=== PATIENT | female | born 2000 | race American Indian/Alaskan Native ===

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

== ENCOUNTER 2019-04-17 16:11 | Observation (INO) | payer MEDICAID ==
[2019-04-17] MEDS ORDERED: LACTATED RINGERS 500 ML IV ONE (16:34)
--- NOTE | 2019-04-17 17:18 | History and Physical Report ---
History of Present Illness Date of examination: 04/17/19 Date of admission: 04/17/2019 Chief complaint: Presents from office with advanced cervical dilation at 34 3/7 Weeks History of present illness: Early entry to care at 6 3/7 weeks; course complicated by a breast mass (negative breast US); Vitamin D Deficiency, and advanced cervical dilation at 34 3/7 weeks. 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 History: chlamydia, gonorrhea Family/Genetic History: hypertension Social history: no significant social history, single - Obstetrical History Expected Date of Delivery: 05/26/19 Actual Gestation: 34 Week(s) 3 Day(s) : 2 Para: 1 Hx # Term Pregnancies: 1 Number of Living Children: 1 #1 Infant Gender: Female year: 2[age][birth year] Birthweight: 3.629 kg Method of Delivery: Vaginal Complications: none Medications and Allergies Allergies Allergy/AdvReac Type Severity Reaction Status Date / Time No Known Allergies Allergy Verified 11/12/17 15:38 Home Medications Medication Instructions Recorded Confirmed Last Taken Type ALBUTEROL Inhaler (OR & NICU) 2 puff IH 2XWHS PRN #90 inhalation 10/07/14 11/22/17 2 Days Ago Rx [ProAir HFA Inhaler] ~11/19/17 ALBUTEROL NEB's [Proventil 0.083% 2.5 mg IH TID PRN #30 neb 06/14/18 Unknown Rx NEBS] Albuterol Sulfate [Ventolin HFA] 2 puff IH Q4H PRN #1 hfa.aer.ad 06/14/18 Unknown Rx Nitrofurantoin Monohyd/M-Cryst 100 mg PO BID #10 capsule 09/20/18 Unknown Rx [Macrobid 100 mg Capsule] Pnv,Calcium 72/Iron/Folic Acid 1 tab PO DAILY #40 tablet 09/20/18 Unknown Rx [Pnv Plus Multivit Tab] Active Meds: Active Medications Betamethasone Acet/Betameth SodPhos (Celestone Soluspan) 12 mg IM Q24HR YESENIA Stop: 04/18/19 10:01 Lactated Ringer's (Lactated Ringers) 1,000 mls @ 125 mls/hr IV DIRECT YESENIA Ampicillin Sodium (Ampicillin/Ns 2 Gm/100 Ml) 2 gm in 100 mls @ 400 mls/hr IV Q6H YESENIA; Protocol Review of Systems All systems: negative - Vital Signs Vital signs: Vital Signs Pulse BP Pulse Ox 93 H 122/75 98 04/17/19 17:02 04/17/19 17:02 04/17/19 17:02 Temp Pulse Resp BP Pulse Ox 85 122/75 98 04/17/19 17:02 04/17/19 17:02 04/17/19 17:02 - Physical Exam Breasts: Positive: normal Cardiovascular: Regular rate Lungs: Positive: Clear to auscultation, Normal air movement Abdomen: Positive: normal appearance, soft, normal bowel sounds Genitourinary (Female): Positive: normal external genitalia, normal perenium Vagina: Positive: normal moisture Uterus: Positive: enlarged Anus/Rectum: Positive: normal perianal skin Extremities: Positive: normal - Obstetrical FHR: category 1 Uterine Contraction Monitor Mode: External Cervical Dilatation: 3 (Vtx; Intact) Cervical Effacement Percentage: 60 station: -3 Uterine Contraction Pattern: Irregular Uterine Tone Measurement Phase: Resting Uterine Contraction Intensity: Moderate Results All other labs normal. Assessment and Plan A: IUP @ 34 3/7 weeks Category I Tracing Advanced Cervical Dilation P: Admit to L&D Per Routine Orders Betamethsome Series IV ABX IV Hydration BPP Consult Dr. Smith
[2019-04-17] MEDS ORDERED: MAGNESIUM SULFATE 4 GM/100 ML BAG IV ONE ×2 (17:57→18:28)
[2019-04-17] MEDS ORDERED: MAGNESIUM SULFATE 40GM/1000ML 40 GM/1,000 ML BAG IV ONE (17:57)
[2019-04-17] MEDS: LACTATED RINGERS 1,000 ML IV SCH (18:30)
--- NOTE | 2019-04-17 18:31 | Ultrasound Report ---
Biophysical profile INDICATION: labor COMPARISON: None FINDINGS: breathing movement: 2/2 movement: 2/2 posture and tone: 2/2 Qualitative amniotic fluid volume: 2/2 IMPRESSION: Total score for biophysical profile is 8/8 heart rate is 156 bpm Signer Name: Woodrow Love MD Signed: 04/17/2019 6:27 PM Workstation Name: [id number]
--- NOTE | 2019-04-17 18:33 | Ultrasound Report ---
ULTRASOUND OBSTETRIC, limited follow-up Indication: FWB Findings: There is a single intrauterine . BPD = 8.5 cm = 34 weeks, 2 day(s). Head circumference = 30.9 cm = 34 weeks, 3 day(s). Abdominal circumference = 29.6 cm = 33 weeks, 3 day(s). Femur length = 6.9 cm = 35 weeks, 4 day(s). Overall estimated sonographic age = 34 weeks, 3 day(s). heart rate is 159 beats per minute. Estimated weight is 2396 grams position is cephalic. Amniotic fluid volume appears normal. MINGO equals 10.9 cm Impression: 1. Single living intrauterine with estimated sonographic age of 34 weeks, 3 day(s). 2. No sonographic abnormality identified. Signer Name: Woodrow Love MD Signed: 04/17/2019 6:29 PM Workstation Name: [id number]
[2019-04-17] MEDS: AMPICILLIN/NS 2 GM/100 ML 2 GM/100 ML BAG IV SCH (18:34)
--- NOTE | 2019-04-17 18:36 | Progress Note ---
Assessment and Plan - Patient Problems (1) 34 weeks gestation of Current Visit: Yes Status: Acute (2) labor Current Visit: Yes Status: Acute Plan to address problem: Labs, urinalysis. Start magnesium sulfate for tocolysis and neuroprotection. Monitor Mg levels and urine output. monitoring. IV ampicillin for GBS prophylaxis. Celestone for FLM. IV hydration. MFM consult. Subjective - Subjective Date of service: 04/17/19 Principal diagnosis: SIUP at 34 weeks and 3 days wityh labor. Interval history: Patient is a 19 year old , LMP 08/19/18, EDC 05/26/19 at 34 weeks an 3 days gestation who was sent from the office for contractions. She denies any fluid leakage or bleeding. She reports good movement. tracing is CAT1. Exam by scratch finisher in the office: cervix 3 cm. Objective - Vital Signs Vital Signs: Vital Signs - 12hr 04/17/19 17:02 Pulse Rate 85 Blood Pressure 122/75 O2 Sat by Pulse 98 Oximetry - Exam Cardiovascular: Normal S1, Normal S2 Lungs: Clear to auscultation Vulva: both: normal FHR: category 1 Uterine Contraction Monitor Mode: External Uterine Contraction Pattern: Absent Deep Tendon Reflex Grade: Normal +2 - Results US- obstetric: report reviewed
[2019-04-17] MEDS: BETAMET ACET/BETAMET NA PH 6 MG/ML INJ 5 ML MDV IM SCH (18:42)
[2019-04-17] MEDS: MAGNESIUM SULFATE 40GM/1000ML 40 GM/1,000 ML BAG IV SCH (18:49)
[2019-04-17 19:41] LABS: Basophils # (Auto) 0.1 K/mm3 (0.0-0.1); Basophils % (Auto) 1.1 % (0.0-1.8); Eosinophils # (Auto) 0.1 K/mm3 (0.0-0.4); Eosinophils % (Auto) 1.1 % (0.0-4.3); Hematocrit 36.2 % (30.3-42.9); Hemoglobin 11.8 gm/dl (10.1-14.3); Lymphocytes # (Auto) 2.9 K/mm3 (1.2-5.4); Lymphocytes % (Auto) 25.4 % (13.4-35.0); Mean Corpuscular HGB Conc 33 % (30-34); Mean Corpuscular Volume 85 fl (79-97); Monocytes % (Auto) 8.6 % (0.0-7.3); Platelet Count 240 K/mm3 (140-440); Red Blood Count 4.24 M/mm3 (3.65-5.03); Red Cell Distribution Width 14.3 % (13.2-15.2)
[2019-04-17] MEDS ORDERED: ZOLPIDEM 5 MG TAB PO PRN (21:36)
[2019-04-18] MEDS: AMPICILLIN/NS 2 GM/100 ML 2 GM/100 ML BAG IV SCH ×4 (01:26→19:39)
[2019-04-18] MEDS ORDERED: BUTORPHANOL 2 MG/1 ML INJ IV PRN (03:54)
[2019-04-18] MEDS ORDERED: DOCUSATE SODIUM 100 MG CAP PO PRN (09:58)
[2019-04-18] MEDS ORDERED: ONDANSETRON 4 MG/2 ML INJ IV PRN (09:58)
[2019-04-18] MEDS ORDERED: ZOLPIDEM 5 MG TAB PO PRN (09:58)
[2019-04-18] MEDS ORDERED: ACETAMINOPHEN 325 MG TAB PO PRN (09:58)
[2019-04-18] MEDS ORDERED: SIMETHICONE 80 MG CHEW TAB PO PRN (09:58)
--- NOTE | 2019-04-18 10:04 | Progress Note ---
Assessment and Plan - Patient Problems (1) 34 weeks gestation of Current Visit: Yes Status: Acute (2) labor Current Visit: Yes Status: Acute Plan to address problem: Continue magnesium sulfate for tocolysis and neuroprotection. Monitor Mg levels and urine output. monitoring. IV ampicillin for GBS prophylaxis. Celestone for FLM to be completed tonight. IV hydration. MFM consult. Subjective - Subjective Date of service: 04/18/19 Principal diagnosis: SIUP at 34 weeks and 4 days wityh labor. Interval history: Patient is a 19 year old , LMP 08/19/18, EDC 05/26/19 at 34 weeks an 4 days gestation who was admitted for labor. She denies any fluid leakage or bleeding. She reports good movement. On initial exam, she was 3 cm dilated. She has felt pressure during the night. This AM, she progressed to 6 cm/50%. She is not having any contractions now. tracing is CAT1. Objective - Vital Signs Vital Signs: Vital Signs - 12hr 04/17/19 04/17/19 04/18/19 22:05 23:17 08:09 Temperature Pulse Rate 89 88 92 H Respiratory Rate Blood Pressure 113/56 133/74 O2 Sat by Pulse 97 98 Oximetry 04/18/19 04/18/19 04/18/19 08:14 08:19 08:24 Temperature Pulse Rate 97 H 93 H 89 Respiratory Rate Blood Pressure O2 Sat by Pulse 98 98 99 Oximetry 04/18/19 04/18/19 04/18/19 08:29 08:33 08:34 Temperature 98.2 F Pulse Rate 91 H 95 H Respiratory 16 Rate Blood Pressure O2 Sat by Pulse 98 99 Oximetry 04/18/19 04/18/19 04/18/19 09:30 09:50 09:55 Temperature Pulse Rate 93 H 84 80 Respiratory Rate Blood Pressure O2 Sat by Pulse 97 98 98 Oximetry - Exam Cardiovascular: Normal S1, Normal S2 Lungs: Clear to auscultation Vulva: both: normal FHR: category 1 Uterine Contraction Monitor Mode: External Uterine Contraction Pattern: Absent Deep Tendon Reflex Grade: Normal +2 - Labs Labs: Abnormal Labs 04/17/19 04/18/19 19:12 00:39 WBC 11.4 H [place] % (Auto) 8.6 H [place] # 1.0 H Magnesium 4.30 H Laboratory Results - last 24 hr 10/23/19 10/23/19 10/24/19 19:12 19:15 00:39 WBC 11.4 H RBC 4.24 Hgb 11.8 Hct 36.2 MCV 85 MCH 28 MCHC 33 RDW 14.3 Plt Count 240 Lymph % (Auto) 25.4 [place] % (Auto) 8.6 H Eos % (Auto) 1.1 Baso % (Auto) 1.1 Lymph # 2.9 [place] # 1.0 H Eos # 0.1 Baso # 0.1 Seg Neutrophils % 63.8 Seg Neutrophils # 7.3 Magnesium 4.30 H Blood Type B POSITIVE Antibody Screen Negative - Results US- obstetric: report reviewed
[2019-04-18] MEDS ORDERED: NIFEdipine*For Tocolysis only* 10 MG CAPSULE PO ONE (13:30)
[2019-04-18] MEDS: PRENATAL VIT27-FE FUMARATE-FOLIC ACID VIT TAB PO SCH (13:38)
[2019-04-18] MEDS: MAGNESIUM SULFATE 40GM/1000ML 40 GM/1,000 ML BAG IV SCH (14:48)
[2019-04-18] MEDS ORDERED: NalbUPHINE 10 MG/1 ML INJ IV ONE (16:27)
[2019-04-18] MEDS: BETAMET ACET/BETAMET NA PH 6 MG/ML INJ 5 ML MDV IM SCH (18:42)
[2019-04-19] MEDS: AMPICILLIN/NS 2 GM/100 ML 2 GM/100 ML BAG IV SCH ×3 (04:44→16:27)
[2019-04-19] MEDS: MAGNESIUM SULFATE 40GM/1000ML 40 GM/1,000 ML BAG IV SCH (06:44)
[2019-04-19] MEDS: LACTATED RINGERS 1,000 ML IV SCH ×2 (06:44→20:03)
[2019-04-19] MEDS: PRENATAL VIT27-FE FUMARATE-FOLIC ACID VIT TAB PO SCH (09:25)
--- NOTE | 2019-04-19 14:11 | Progress Note ---
Assessment and Plan - Patient Problems (1) 34 weeks gestation of Current Visit: Yes Status: Acute (2) labor Current Visit: Yes Status: Acute Plan to address problem: To remain admitted. Expectant mgt. NICU aware. Subjective - Subjective Date of service: 04/19/19 Principal diagnosis: SIUP at 34 weeks and 4 days wityh labor. Interval history: 34+5 wks with cervical dilatation of 6cm. Membranes remain intact. MgSO4 was discontinued this am. No consistent pattern/regularity of contractions reported. fetus is active. Patient reports: movement normal, no new complaints, no loss of fluid, no vaginal bleeding, no contractions Objective - Vital Signs Vital Signs: Vital Signs - 12hr 04/19/19 04/19/19 04/19/19 02:12 02:16 02:22 Temperature Pulse Rate 76 77 76 Respiratory Rate Blood Pressure Blood Pressure [Left] O2 Sat by Pulse 98 98 98 Oximetry 04/19/19 04/19/19 04/19/19 02:27 02:32 02:35 Temperature Pulse Rate 82 78 76 Respiratory Rate Blood Pressure 118/66 Blood Pressure [Left] O2 Sat by Pulse 98 98 Oximetry 04/19/19 04/19/19 04/19/19 02:37 02:42 02:47 Temperature Pulse Rate 77 76 78 Respiratory Rate Blood Pressure Blood Pressure [Left] O2 Sat by Pulse 98 98 98 Oximetry 04/19/19 04/19/19 04/19/19 02:51 02:57 03:02 Temperature Pulse Rate 88 76 74 Respiratory Rate Blood Pressure Blood Pressure [Left] O2 Sat by Pulse 98 99 99 Oximetry 04/19/19 04/19/19 04/19/19 03:05 03:07 03:12 Temperature Pulse Rate 79 75 74 Respiratory Rate Blood Pressure 118/64 Blood Pressure [Left] O2 Sat by Pulse 99 99 Oximetry 04/19/19 04/19/19 04/19/19 03:17 03:22 03:27 Temperature Pulse Rate 74 73 76 Respiratory Rate Blood Pressure Blood Pressure [Left] O2 Sat by Pulse 99 98 99 Oximetry 04/19/19 04/19/19 04/19/19 03:32 03:34 03:37 Temperature Pulse Rate 91 H 68 71 Respiratory Rate Blood Pressure 124/57 Blood Pressure [Left] O2 Sat by Pulse 99 98 Oximetry 04/19/19 04/19/19 04/19/19 03:42 03:47 03:52 Temperature Pulse Rate 72 72 74 Respiratory Rate Blood Pressure Blood Pressure [Left] O2 Sat by Pulse 98 98 98 Oximetry 04/19/19 04/19/19 04/19/19 03:57 04:02 04:04 Temperature Pulse Rate 75 73 74 Respiratory Rate Blood Pressure 111/56 Blood Pressure [Left] O2 Sat by Pulse 98 98 Oximetry 04/19/19 04/19/19 04/19/19 04:07 04:12 04:17 Temperature Pulse Rate 75 76 86 Respiratory Rate Blood Pressure Blood Pressure [Left] O2 Sat by Pulse 98 99 99 Oximetry 04/19/19 04/19/19 04/19/19 04:22 04:23 04:27 Temperature Pulse Rate 61 76 70 Respiratory Rate Blood Pressure Blood Pressure [Left] O2 Sat by Pulse 94 99 100 Oximetry 04/19/19 04/19/19 04/19/19 04:33 04:35 04:38 Temperature Pulse Rate 77 67 71 Respiratory Rate Blood Pressure 105/57 Blood Pressure [Left] O2 Sat by Pulse 99 99 Oximetry 04/19/19 04/19/19 04/19/19 04:43 04:48 04:53 Temperature Pulse Rate 91 H 81 87 Respiratory Rate Blood Pressure Blood Pressure [Left] O2 Sat by Pulse 99 99 99 Oximetry 04/19/19 04/19/19 04/19/19 04:58 05:03 05:06 Temperature Pulse Rate 83 80 78 Respiratory Rate Blood Pressure 110/56 Blood Pressure [Left] O2 Sat by Pulse 98 98 Oximetry 04/19/19 04/19/19 04/19/19 05:08 05:13 05:18 Temperature Pulse Rate 80 81 84 Respiratory Rate Blood Pressure Blood Pressure [Left] O2 Sat by Pulse 98 98 98 Oximetry 04/19/19 04/19/19 04/19/19 05:23 05:28 05:33 Temperature Pulse Rate 84 79 78 Respiratory Rate Blood Pressure Blood Pressure [Left] O2 Sat by Pulse 98 99 98 Oximetry 04/19/19 04/19/19 04/19/19 05:34 05:38 05:43 Temperature Pulse Rate 78 82 82 Respiratory Rate Blood Pressure 103/50 Blood Pressure [Left] O2 Sat by Pulse 98 98 Oximetry 04/19/19 04/19/19 04/19/19 05:48 05:53 05:58 Temperature Pulse Rate 94 H 79 88 Respiratory Rate Blood Pressure Blood Pressure [Left] O2 Sat by Pulse 99 99 98 Oximetry 04/19/19 04/19/19 04/19/19 06:03 06:04 06:08 Temperature Pulse Rate 85 88 85 Respiratory Rate Blood Pressure 142/65 Blood Pressure [Left] O2 Sat by Pulse 98 99 Oximetry 04/19/19 04/19/19 04/19/19 06:13 06:18 06:23 Temperature Pulse Rate 91 H 87 79 Respiratory Rate Blood Pressure Blood Pressure [Left] O2 Sat by Pulse 98 99 99 Oximetry 04/19/19 04/19/19 04/19/19 06:28 06:33 06:34 Temperature Pulse Rate 82 82 85 Respiratory Rate Blood Pressure 143/67 Blood Pressure [Left] O2 Sat by Pulse 99 99 Oximetry 04/19/19 04/19/19 04/19/19 06:38 06:43 06:48 Temperature Pulse Rate 83 77 97 H Respiratory Rate Blood Pressure Blood Pressure [Left] O2 Sat by Pulse 99 99 99 Oximetry 04/19/19 04/19/19 04/19/19 06:53 06:58 07:03 Temperature Pulse Rate 95 H 83 81 Respiratory Rate Blood Pressure Blood Pressure [Left] O2 Sat by Pulse 99 99 99 Oximetry 04/19/19 04/19/19 04/19/19 07:04 07:08 07:13 Temperature Pulse Rate 89 82 92 H Respiratory Rate Blood Pressure 106/58 Blood Pressure [Left] O2 Sat by Pulse 99 99 Oximetry 04/19/19 04/19/19 04/19/19 07:18 07:23 07:28 Temperature Pulse Rate 88 81 71 Respiratory Rate Blood Pressure Blood Pressure [Left] O2 Sat by Pulse 99 99 100 Oximetry 04/19/19 04/19/19 04/19/19 07:33 07:38 07:43 Temperature Pulse Rate 71 89 78 Respiratory Rate Blood Pressure Blood Pressure [Left] O2 Sat by Pulse 100 98 100 Oximetry 04/19/19 04/19/19 04/19/19 07:48 07:53 07:55 Temperature 98.4 F Pulse Rate 77 91 H 83 Respiratory 18 Rate Blood Pressure Blood Pressure 117/64 [Left] O2 Sat by Pulse 100 99 Oximetry 04/19/19 04/19/19 04/19/19 07:58 08:01 08:03 Temperature Pulse Rate 86 83 83 Respiratory Rate Blood Pressure 117/64 Blood Pressure [Left] O2 Sat by Pulse 100 84 Oximetry 04/19/19 04/19/19 04/19/19 08:04 08:09 08:14 Temperature Pulse Rate 91 H 89 86 Respiratory Rate Blood Pressure Blood Pressure [Left] O2 Sat by Pulse 100 99 99 Oximetry 04/19/19 04/19/19 04/19/19 08:19 08:24 08:29 Temperature Pulse Rate 85 86 83 Respiratory Rate Blood Pressure Blood Pressure [Left] O2 Sat by Pulse 99 100 100 Oximetry 04/19/19 04/19/19 04/19/19 08:34 08:39 08:44 Temperature Pulse Rate 84 93 H 85 Respiratory Rate Blood Pressure Blood Pressure [Left] O2 Sat by Pulse 100 100 99 Oximetry 04/19/19 04/19/19 04/19/19 08:49 08:54 08:59 Temperature Pulse Rate 88 93 H 87 Respiratory Rate Blood Pressure Blood Pressure [Left] O2 Sat by Pulse 100 99 100 Oximetry 04/19/19 04/19/19 04/19/19 09:04 09:09 09:14 Temperature Pulse Rate 84 90 95 H Respiratory Rate Blood Pressure Blood Pressure [Left] O2 Sat by Pulse 100 100 100 Oximetry 04/19/19 04/19/19 04/19/19 09:19 09:24 09:29 Temperature Pulse Rate 90 112 H 100 H Respiratory Rate Blood Pressure Blood Pressure [Left] O2 Sat by Pulse 100 99 99 Oximetry 04/19/19 04/19/19 04/19/19 09:34 09:39 09:44 Temperature Pulse Rate 88 89 89 Respiratory Rate Blood Pressure Blood Pressure [Left] O2 Sat by Pulse 99 99 99 Oximetry 04/19/19 04/19/19 04/19/19 09:49 09:54 09:59 Temperature Pulse Rate 89 92 H 96 H Respiratory Rate Blood Pressure Blood Pressure [Left] O2 Sat by Pulse 99 100 99 Oximetry 04/19/19 04/19/19 04/19/19 10:04 10:09 10:14 Temperature Pulse Rate 82 95 H 84 Respiratory Rate Blood Pressure Blood Pressure [Left] O2 Sat by Pulse 100 99 99 Oximetry 04/19/19 04/19/19 04/19/19 10:19 10:24 10:29 Temperature Pulse Rate 86 79 87 Respiratory Rate Blood Pressure Blood Pressure [Left] O2 Sat by Pulse 99 99 99 Oximetry 04/19/19 04/19/19 04/19/19 10:34 10:39 10:44 Temperature Pulse Rate 84 84 86 Respiratory Rate Blood Pressure Blood Pressure [Left] O2 Sat by Pulse 99 99 99 Oximetry 04/19/19 04/19/19 04/19/19 10:49 10:54 10:59 Temperature Pulse Rate 88 89 85 Respiratory Rate Blood Pressure Blood Pressure [Left] O2 Sat by Pulse 99 99 99 Oximetry 04/19/19 04/19/19 04/19/19 11:04 11:09 11:14 Temperature Pulse Rate 86 79 78 Respiratory Rate Blood Pressure Blood Pressure [Left] O2 Sat by Pulse 100 99 99 Oximetry 04/19/19 04/19/19 04/19/19 11:17 11:22 11:27 Temperature Pulse Rate 177 H Respiratory Rate Blood Pressure Blood Pressure [Left] O2 Sat by Pulse 82 L 85 77 L Oximetry 04/19/19 04/19/19 04/19/19 11:28 11:33 11:35 Temperature Pulse Rate 88 103 H 206 H Respiratory Rate Blood Pressure Blood Pressure [Left] O2 Sat by Pulse 77 L 92 82 L Oximetry 04/19/19 04/19/19 04/19/19 11:46 12:30 12:38 Temperature 98.1 F Pulse Rate 66 83 83 Respiratory 18 Rate Blood Pressure 116/56 Blood Pressure 116/56 [Left] O2 Sat by Pulse 85 Oximetry - Exam Lungs: Normal air movement Abdomen: Present: normal appearance, soft, distention. Absent: tenderness FHR: auscultation normal - Labs Labs: Abnormal Labs 04/17/19 04/18/19 04/19/19 19:12 00:39 07:06 WBC 11.4 H [place] % (Auto) 8.6 H [place] # 1.0 H Magnesium 4.30 H 6.10 H Laboratory Results - last 24 hr 04/19/19 07:06 Magnesium 6.10 H
[2019-04-20] MEDS: LACTATED RINGERS 1,000 ML IV SCH (04:18)
[2019-04-20] MEDS: AMPICILLIN/NS 2 GM/100 ML 2 GM/100 ML BAG IV SCH (05:49)
[2019-04-20 10:03] VITALS: BP 110/55
--- NOTE | 2019-04-20 14:53 | Progress Note ---
Assessment and Plan - Patient Problems (1) 34 weeks gestation of Current Visit: Yes Status: Acute (2) labor Current Visit: Yes Status: Acute Plan to address problem: Magnesium sulfate x 24 hrs given for tocolysis and neuroprotection. IV ampicillin for GBS prophylaxis. Celestone for FLM to be completed. IV hydration. monitoring. MFM consult. Remains inpatient. Expectant management. Subjective - Subjective Date of service: 04/20/19 Principal diagnosis: SIUP at 34 weeks and 6 days with labor. Interval history: Patient is a 19 year old , LMP 08/19/18, EDC 05/26/19 at 34 weeks an 6 days gestation who was admitted for labor 3 days ago. She denies any fluid leakage or bleeding. She reports good movement. On initial exam, she was 3 cm dilated. She later she progressed to 6 cm/50%. She has not made any cervical changes since. She was treated with magnesium sulfate for neuroprotection, ampicillin for GBS prophylaxis, and celestone for FLM. Sonogram showed normal MINGO, VTX presentation. She is not having any contractions now. tracing is CAT1. Patient reports: movement normal, no new complaints, no loss of fluid, no vaginal bleeding, no contractions Objective - Vital Signs Vital Signs: Vital Signs - 12hr 04/20/19 04/20/19 04/20/19 06:59 07:18 10:00 Temperature 98.7 F Pulse Rate 81 81 77 Respiratory 18 Rate Blood Pressure 94/55 110/54 Blood Pressure 94/55 [Left] 04/20/19 10:02 Temperature Pulse Rate 77 Respiratory 16 Rate Blood Pressure Blood Pressure 110/55 [Left] - Exam Cardiovascular: Normal S1, Normal S2 Lungs: Clear to auscultation Vulva: both: normal FHR: category 1 Uterine Contraction Monitor Mode: External Cervical Dilatation: 6 Cervical Effacement Percentage: 50 station: -3 Uterine Contraction Pattern: Absent Deep Tendon Reflex Grade: Normal +2 - Labs Labs: Abnormal Labs 04/17/19 04/18/19 04/19/19 19:12 00:39 07:06 WBC 11.4 H [place] % (Auto) 8.6 H [place] # 1.0 H Magnesium 4.30 H 6.10 H 04/19/19 13:53 WBC [place] % (Auto) [place] # Magnesium 4.20 H Laboratory Results - last 24 hr 04/19/19 13:53 Magnesium 4.20 H - Results US- obstetric: report reviewed
== END 2019-04-20 13:30 | disposition left against medical advice (07) ==
LOC: TRG 16:11 → LD 16:13 → TRG 04-18 09:58 → LD 04-18 09:58
PROVIDERS: ADMIT Obstetrics & Gynecology; ATTEND Obstetrics & Gynecology
DX: O60.03 Preterm labor without delivery, third trimester (principal); Z3A.34 34 weeks gestation of pregnancy
CPT/HCPCS: 36415; 76816; 76819; 83735; 85025; 86850; 86900; 86901; 96365; 96366; 96372; 96375; 96376; G0378; J0290; J0595; J0702; J2300; J3475; J7120

== ENCOUNTER 2019-05-08 08:09 | Inpatient (IN) | payer MEDICAID ==
[2019-05-08] MEDS ORDERED: TERBUTALINE 1 MG/1 ML INJ SUB-Q PRN (09:00)
[2019-05-08] MEDS ORDERED: fentaNYL 100 MCG/2 ML INJ IV PRN (09:00)
[2019-05-08] MEDS ORDERED: NALOXONE 0.4 MG/1 ML INJ IV PRN (09:00)
[2019-05-08] MEDS ORDERED: ePHEDrine SULFATE 50 MG/1 ML INJ IV PRN (09:00)
[2019-05-08] MEDS ORDERED: OXYTOCIN DRIP 30 UNITS/500 ML BAG IV SCH (09:00)
[2019-05-08] MEDS ORDERED: ONDANSETRON 4 MG/2 ML INJ IV PRN (09:00)
[2019-05-08] MEDS ORDERED: OXYTOCIN 20 UNIT/1000ML DRIP 20 UNITS/1,000 ML BAG IV SCH (09:00)
[2019-05-08] MEDS ORDERED: LIDOCAINE (2%) 20 MG/1 ML VIAL 20 ML MDV INFILTRATI NR (09:00)
[2019-05-08] MEDS ORDERED: TERBUTALINE 1 MG/1 ML INJ IVP PRN (09:00)
--- NOTE | 2019-05-08 09:02 | History and Physical Report ---
History of Present Illness Date of examination: 05/08/19 Date of admission: 05/08/2019 Chief complaint: Intense Pelvic Pressure History of present illness: Early entry to care, course complicated by a breast mass (normal breast ultrasound); Vit. D deficiency; and labor concerns (received MagSO4 and Betamethsome series at 34 Weeks). Past History Past Medical History: no pertinent history Past Surgical History: no surgical history GENOMICS SCIENTIST History: chlamydia, gonorrhea Family/Genetic History: hypertension Social history: no significant social history, single - Obstetrical History Expected Date of Delivery: 05/26/19 Actual Gestation: 37 Week(s) 3 Day(s) : 2 Para: 1 Hx # Term Pregnancies: 1 Number of Living Children: 1 #1 Infant Gender: Female year: 2019 Birthweight: 3.629 kg Method of Delivery: Vaginal Gestational age at delivery: 39 Complications: none Medications and Allergies Allergies Allergy/AdvReac Type Severity Reaction Status Date / Time No Known Allergies Allergy Verified 11/12/17 15:38 Home Medications Medication Instructions Recorded Confirmed Last Taken Type ALBUTEROL Inhaler (OR & NICU) 2 puff IH 2XWHS PRN #90 inhalation 10/07/14 04/17/19 2 Days Ago Rx [ProAir HFA Inhaler] ~11/19/17 ALBUTEROL NEB's [Proventil 0.083% 2.5 mg IH TID PRN #30 neb 06/14/18 04/17/19 Unknown Rx NEBS] Albuterol Sulfate [Ventolin HFA] 2 puff IH Q4H PRN #1 hfa.aer.ad 06/14/18 04/17/19 Unknown Rx Nitrofurantoin Monohyd/M-Cryst 100 mg PO BID #10 capsule 09/20/18 04/17/19 Unknown Rx [Macrobid 100 mg Capsule] Pnv,Calcium 72/Iron/Folic Acid 1 tab PO DAILY #40 tablet 09/20/18 04/17/19 Unknown Rx [Pnv Plus Multivit Tab] Active Meds: Active Medications Ephedrine Sulfate (Ephedrine Sulfate) 10 mg IV Q2M PRN PRN Reason: Hypotension Fentanyl (Sublimaze) 100 mcg IV Q2H PRN PRN Reason: Labor Pain Oxytocin/Sodium Chloride (Pitocin/Ns 20 Unit/1000ml Drip) 20 units in 1,000 mls @ 125 mls/hr IV DIRECT YESENIA Oxytocin/Sodium Chloride (Pitocin/Ns 30 Unit/500ml) 30 units in 500 mls @ 4 mls/hr IV TITR YESENIA; Protocol Lactated Ringer's (Lactated Ringers) 1,000 mls @ 125 mls/hr IV DIRECT YESENIA Ampicillin Sodium (Ampicillin/Ns 2 Gm/100 Ml) 2 gm in 100 mls @ 100 mls/hr IV ONCE ONE; Protocol Stop: 05/08/19 09:50 Ampicillin Sodium (Ampicillin/Ns 1 Gm/50 Ml) 1 gm in 50 mls @ 100 mls/hr IV Q4HR YESENIA; Protocol Lidocaine (Xylocaine 2%) 20 ml INFILTRATI ONCE ONE Stop: 05/08/19 08:52 Mineral Oil (Mineral Oil) 30 ml PO QHS PRN PRN Reason: Constipation Naloxone HCl (Naloxone) 0.1 mg IV Q2MIN PRN PRN Reason: Res Rate </= 8 or 02 SAT < 92% Ondansetron HCl (Zofran) 4 mg IV Q8H PRN PRN Reason: Nausea And Vomiting Terbutaline Sulfate (Brethine) 0.25 mg SUB-Q ONCE PRN PRN Reason: Hyperstimulation/Hypertonicity Terbutaline Sulfate (Brethine) 0.25 mg IVP ONCE PRN PRN Reason: Hyperstimulation/Hypertonicity Review of Systems All systems: negative - Vital Signs Vital signs: Vital Signs Temp Resp 98.0 F 05/08/19 08:52 05/08/19 08:52 Temp Pulse Resp BP Pulse Ox 98.0 F 05/08/19 08:52 05/08/19 08:52 - Physical Exam Breasts: Positive: normal Cardiovascular: Regular rate Lungs: Positive: Clear to auscultation, Normal air movement Abdomen: Positive: normal appearance, soft, normal bowel sounds Genitourinary (Female): Positive: normal external genitalia, normal perenium Vagina: Positive: normal moisture Uterus: Positive: enlarged Anus/Rectum: Positive: normal perianal skin - Obstetrical FHR: category 1 Uterine Contraction Monitor Mode: External Cervical Dilatation: 7 (Intact) Cervical Effacement Percentage: 80 station: -2 Uterine Contraction Pattern: Irregular Uterine Tone Measurement Phase: Resting Uterine Contraction Intensity: Mild Results All other labs normal. Assessment and Plan A: IUP @ 37 3/7 Weeks Category I Tracing Advanced Cervical Dilation GBS Positive P: Admit to L&D per Routine Orders Pitocin Augmentation GBS Prophylaxis
[2019-05-08] MEDS: LACTATED RINGERS 1,000 ML IV SCH ×2 (09:42→10:37)
[2019-05-08 09:45] LABS: Hematocrit 34.6 % (30.3-42.9); Hemoglobin 11.4 gm/dl (10.1-14.3); Mean Corpuscular HGB Conc 33 % (30-34); Mean Corpuscular Volume 86 fl (79-97); Platelet Count 222 K/mm3 (140-440); Red Blood Count 4.03 M/mm3 (3.65-5.03); Red Cell Distribution Width 14.4 % (13.2-15.2)
[2019-05-08] MEDS ORDERED: MINERAL OIL 30 ML ORAL LIQD PO PRN (10:00)
[2019-05-08] MEDS ORDERED: AMPICILLIN/NS 2 GM/100 ML 2 GM/100 ML BAG IV ONE (10:30)
--- NOTE | 2019-05-08 11:41 | Progress Note ---
Assessment and Plan A: IUP @ 37 3/7 Weeks Category I Tracing Advanced Cervical Dilation GBS Positive P: AROM Internal x 1 Continue Pitocin Augmentation Continue GBS Prophylaxis Subjective - Subjective Date of service: 05/08/19 Interval history: Early entry to care, course complicated by a breast mass (normal breast ultrasound); Vit. D deficiency; and labor concerns (received MagSO4 and Betamethsome series at 34 Weeks). Patient reports: movement normal, contractions Objective - Vital Signs Vital Signs: Vital Signs - 12hr 05/08/19 05/08/19 05/08/19 08:52 10:17 10:19 Temperature 98.0 F 99.5 F Pulse Rate 82 Respiratory 20 18 Rate Blood Pressure 125/69 05/08/19 11:28 Temperature Pulse Rate 80 Respiratory Rate Blood Pressure 113/64 - Exam Breasts: normal Cardiovascular: Regular rate Lungs: Clear to auscultation, Normal air movement Abdomen: Present: normal appearance, soft, normal bowel sounds Uterus: Present: normal, firm, fundal height above umbilicus FHR: category 1 Uterine Contraction Monitor Mode: Internal Cervical Dilatation: 7 (Moderate amount of clear fluid upon AROM at 1136) Cervical Effacement Percentage: 80 station: -2 Uterine Contraction Frequency (min): 3 Uterine Contraction Pattern: Regular Uterine Tone Measurement Phase: Resting Uterine Contraction Intensity: Mild Extremities: normal - Labs Labs: Laboratory Results - last 24 hr 05/08/19 05/08/19 09:20 09:20 WBC 8.6 RBC 4.03 Hgb 11.4 Hct 34.6 MCV 86 MCH 28 MCHC 33 RDW 14.4 Plt Count 222 Blood Type B POSITIVE Antibody Screen Negative
[2019-05-08] MEDS ORDERED: LANOLIN/ZINC/DIMETHICONE (LANSINOH) 7 GM TP PRN (13:21)
[2019-05-08] MEDS ORDERED: diphenhydrAMINE 25 MG CAP PO PRN (13:21)
--- NOTE | 2019-05-08 13:31 | Procedure Note ---
OB Delivery Note - Delivery Date of Delivery: 05/08/19 (1301) Surgeon: MIKAELA BURROWS Estimated blood loss: 200cc - Vaginal Delivery presentation: vertex Delivery position: OA Intrapartum events: none Delivery induction: none Delivery augmentation: rupture of membranes, pitocin Delivery monitor: external FHT, internal uterine Route of delivery: Delivery placenta: spontaneous Delivery cord: 3 umbilical vessels Episiotomy: none Delivery laceration: none Anesthesia: epidural Delivery comments: of a live 7'4 female infant over a intact perineum under epidural anesthesia with Apgars of 8 and 9 at 1301 on 05/08/2019. directly to maternal abd/chest, skin to skin contact. Delayed cord clamping and cutting; Cord cut by the Father of the Baby. Spontaneous delivery of the placenta complete and intact with [place] side presenting at 1311. Fundus is firm and midline located 4 below the U. Lochia is scant. Placenta discarded. GBS Prophylaxis x 1. - A at 1 minute: 8 at 5 minutes: 9 Infant Gender: Female
[2019-05-08] MEDS: HYDROcodone/ACETAMINOPHEN 5-325 MG TAB PO PRN ×2 (13:32→21:30)
[2019-05-08] MEDS ORDERED: AMPICILLIN/NS 1 GM/50 ML 1 GM/50 ML BAG IV SCH (14:00)
--- NOTE | 2019-05-08 14:54 | Anesthesia Consultation ---
Anesthesia Consult and Med Hx Date of service: 05/08/19 - Airway Anesthetic Teeth Evaluation: Good ROM Head & Neck: Adequate Mental/Hyoid Distance: Adequate Mallampati Class: Class II Intubation Access Assessment: Probably Good - Pulmonary Exam CTA: Yes - Cardiac Exam Cardiac Exam: RRR - Pre-Operative Health Status ASA Pre-Surgery Classification: ASA3 Proposed Anesthetic Plan: Epidural - Pulmonary Hx Smoking: No Hx Asthma: Yes (last used inhaler about 11 months ago) Hx Respiratory Symptoms: No SOB: No COPD: No Home Oxygen Therapy: No Hx Pneumonia: No Hx Sleep Apnea: No - Cardiovascular System Hx Hypertension: No Hx Coronary Artery Disease: No Hx Heart Attack/AMI: No Hx Angina: No Hx Percutaneous Transluminal Coronary Angioplasty (PTCA): No Hx Cardia Arrhythmia: No Hx Pacemaker: No Hx Internal Defibrillator: No Hx Valvular Heart Disease: No Hx Heart Murmur: No Hx Peripheral Vascular Disease: No - Central Nervous System Hx Neuromuscular Disorder: No Hx Seizures: No CVA: No Hx Back Pain: No Hx Psychiatric Problems: No - Gastrointestinal Hx Ulcer: No Hx Gastroesophageal Reflux Disease: No - Endocrine Hx Renal Disease: No Hx End Stage Renal Disease: No Hx Cirrhosis: No Hx Liver Disease: No Hx Insulin Dependent Diabetes: No Hx Non-Insulin Dependent Diabetes: No Hx Thyroid Disease: No Hx Hypothyroidism: No Hx Hyperthyroidism: No - Hematic Hx Anemia: No Hx Sickle Cell Disease: No - Other Systems Hx Alcohol Use: No Hx Substance Use: No Hx Cancer: No Hx Obesity: Yes (BMI 36)
[2019-05-08] MEDS: IBUPROFEN 600 MG TAB PO SCH ×2 (17:51→23:28)
[2019-05-09 00:51] LABS: Hematocrit 30.5 % (30.3-42.9); Hemoglobin 9.9 gm/dl (10.1-14.3)
[2019-05-09] MEDS: IBUPROFEN 600 MG TAB PO SCH ×4 (05:26→23:40)
--- NOTE | 2019-05-09 10:55 | Progress Note ---
Assessment and Plan A: PPD#1 s/p Asymptomatic Anemia Stable P: Routine PP care Discharge home today pending Peds Subjective - Subjective Date of service: 05/09/19 Principal diagnosis: PPD#1 s/p Interval history: H&P and delivery note Patient reports: appetite normal, voiding normally, pain well controlled, flatus, ambulating normally, no bowel movement : doing well, other (Breat/bottle) Objective - Vital Signs Latest vital signs: Vital Signs Temp Pulse Resp BP BP Pulse Ox 05/09/19 08:24 98.3 F 77 20 104/51 98 05/09/19 01:44 98.1 F 85 20 106/54 99 05/08/19 21:58 98.7 F 73 20 112/54 99 05/08/19 21:30 18 05/08/19 17:00 97.8 F 69 18 113/51 05/08/19 14:50 98.2 F 70 18 120/71 99 05/08/19 14:30 97.9 F 05/08/19 14:13 75 117/57 05/08/19 13:58 75 124/74 05/08/19 13:43 77 119/66 05/08/19 13:28 82 120/67 05/08/19 13:13 83 125/58 05/08/19 13:04 79 98 05/08/19 12:59 110 H 99 05/08/19 12:58 101 H 135/75 05/08/19 12:54 113 H 100 05/08/19 12:52 108 H 86 05/08/19 12:49 97 H 99 05/08/19 12:44 72 99 05/08/19 12:43 72 127/68 05/08/19 12:39 80 100 05/08/19 12:34 74 100 05/08/19 12:29 71 99 05/08/19 12:28 70 114/64 05/08/19 12:26 84 122/68 05/08/19 12:24 85 130/49 99 05/08/19 12:19 98 H 100 05/08/19 12:14 108 H 99 05/08/19 12:12 97 H 138/74 05/08/19 12:09 94 H 97 05/08/19 12:04 97 H 99 11/13/19 11:59 108 H 98 05/08/19 11:54 99 H 100 05/08/19 11:49 94 H 100 05/08/19 11:44 101 H 100 05/08/19 11:39 75 98 05/08/19 11:28 80 113/64 05/08/19 11:27 98.2 F 80 18 113/60 Intake and Output 05/08/19 05/09/19 05/09/19 23:59 07:59 15:59 Intake Total 480 Balance 480 Intake: Oral 480 Other: Total, Intake Amount 480 # Voids Void 2 2 - Exam Breasts: Present: normal, Cardiovascular: Present: Regular rate, Normal S1, Normal S2, No murmurs Lungs: Present: Clear to auscultation, Normal air movement Abdomen: Present: normal appearance, soft, normal bowel sounds. Absent: distention Vulva: both: normal Uterus: Present: firm, fundal height at umbilicus Extremities: Present: normal Deep Tendon Reflex Grade: Normal +2 - Labs Labs: Abnormal lab results 05/09/19 Range/Units 00:23 Hgb 9.9 L (10.1-14.3) gm/dl
--- NOTE | 2019-05-09 10:56 | Discharge Summary ---
Providers - Providers Date of Admission: 05/08/19 08:10 Date of discharge: 05/09/19 Attending physician: MICHELLE REGAN MD Primary care physician: MICHELLE REGAN MD Hospitalization Reason for admission: active labor, IUP at term Delivery: Procedure details: See H&P and delivery note Episiotomy: none Laceration: none Other procedures: none complications: none Discharge diagnosis: IUP at term delivered [place] baby: female Condition at discharge: Good Disposition: DC-01 TO HOME OR SELFCARE Plan - Provider Discharge Summary Activity: routine, no sex for 6 weeks, no heavy lifting 4 weeks, no strenuous exercise Diet: routine Instructions: routine Additional instructions: [] Smoking cessation referral if applicable(refer to patient education folder for contact #) [] Refer to [facility]'s [facility] Booklet Call your doctor immediately for: * Fever > 100.5 * Heavy vaginal bleeding ( >1 pad per hour) * Severe persistent headache * Shortness of breath * Reddened, hot, painful area to leg or breast * Drainage or odor from incision. * Keep incision clean and dry at all times and follow doctor's instructions regarding bathing/showering - Follow up plan Follow up: MICHELLE REGAN MD [Primary Care Provider] - 6 Weeks
[2019-05-10] MEDS: IBUPROFEN 600 MG TAB PO SCH ×3 (05:52→13:18)
[2019-05-10 14:39] VITALS: BP 118/70
== END 2019-05-10 14:00 | disposition home or self-care (01) | DRG 775 ==
LOC: TRG 08:09 → LD 08:10 → TRG 08:11 → OB 15:11
PROVIDERS: ADMIT Obstetrics & Gynecology; ATTEND Obstetrics & Gynecology
PROC: 10E0XZZ Delivery of Products of Conception, External Approach (ICD-10-PCS; principal; 2019-05-08)
PROC: 10907ZC Drainage of Amniotic Fluid, Therapeutic from Products of Conception, Via Natural or Artificial Opening (ICD-10-PCS; 2019-05-08)
PROC: 3E0R3BZ Introduction of Anesthetic Agent into Spinal Canal, Percutaneous Approach (ICD-10-PCS; 2019-05-08)
PROC: 00HU33Z Insertion of Infusion Device into Spinal Canal, Percutaneous Approach (ICD-10-PCS; 2019-05-08)
DX: O99.824 Streptococcus B carrier state complicating childbirth (principal); Z3A.37 37 weeks gestation of pregnancy; Z37.0 Single live birth; O99.52 Diseases of the respiratory system complicating childbirth; J45.909 Unspecified asthma, uncomplicated; O99.214 Obesity complicating childbirth; E66.9 Obesity, unspecified; O99.02 Anemia complicating childbirth; D64.9 Anemia, unspecified
CPT/HCPCS: 36415; 59025; 85014; 85018; 85027; 86850; 86900; 86901; G0378; J0290; J2590; J3010; J7120